=== PATIENT | female | born 1945 | race Caucasian/White ===

== ENCOUNTER 2017-02-26 09:38 | Day surgery (SDC) | payer OTHER, BC ==
[~2017-02-26] VITALS: Ht 152.4 cm; Wt 95.5 kg
[~2017-02-26 09:38] MED LIST: ASMANEX HFA13 G1 IH; BENICAR HCT 401 EAC1; BENICAR HCT 401 EAC1 PO; BENICAR HCT1 TABLE2 PO; BYSTOLIC5 MG; BYSTOLIC5 MG PO; CELEXA20 MG PO; CELEXA40 MG PO; CIPRO500 M1 PO; CIPROFLOXACIN500 M1 PO; COMBIGAN O20 DROP/5 BOTH EYES; CYTOMEL25 MCG; CYTOMEL25 MCG PO; DESYREL100 MG PO; DOXYCYCLINE HYC50 MG; FLAGYL500 MG PO; FLONASE16 G1 BOTH NARES; HYZAAR 50-121 TABLET PO; LEXAPRO20 MG PO; LIMBREL 250 MG250 MG PO; LIPITOR40 MG; LIPITOR40 MG PO; NEXIUM40 MG; NEXIUM40 MG PO; PLAQUENIL200 MG PO; PLAVIX75 MG PO; PROAIR HFA8.5 GM IH; PROBIOTIC1 EAC7 PO; SINGULAIR10 MG PO; TRAMADOL HCL300 MG; TRAVATAN Z; TRAVATAN Z5 ML; TRAZODONE HCL50 MG PO; TYLENOL WITH C1 EACH PO; ULTRAM ER300 MG PO; ULTRAM50 MG PO; XALATAN2.5 ML BOTH EYES; ZETIA10 MG; ZETIA10 MG PO; [UNRECOGNIZED DRUG - OTHER] TP
[2017-02-26 10:09] LABS: POINT-OF-CARE METER ID UU13113694
== END 2017-02-26 11:40 | disposition home or self-care (01) ==
LOC: PAIN 09:38 → SDC 10:30 → PAIN 11:40
PROVIDERS: Anesthesiology Pain Medicine
DX: M47.816 Spondylosis without myelopathy or radiculopathy, lumbar region (principal); M54.5 Low back pain; M51.36 Other intervertebral disc degeneration, lumbar region; M46.1 Sacroiliitis, not elsewhere classified; M79.1 Myalgia; I10 Essential (primary) hypertension; E66.01 Morbid (severe) obesity due to excess calories; Z68.38 Body mass index [BMI] 38.0-38.9, adult; K21.9 Gastro-esophageal reflux disease without esophagitis; E78.5 Hyperlipidemia, unspecified; J45.20 Mild intermittent asthma, uncomplicated; E11.9 Type 2 diabetes mellitus without complications; M35.00 Sjogren syndrome, unspecified; Z87.891 Personal history of nicotine dependence; Z79.891 Long term (current) use of opiate analgesic; Z96.652 Presence of left artificial knee joint; G47.30 Sleep apnea, unspecified; F32.9 Major depressive disorder, single episode, unspecified
CPT/HCPCS: 82948; J1030; J3010; S0020